=== PATIENT | female | born 1985 | race Caucasian/White ===

== ENCOUNTER → 2020-08-30 | Outpatient (CLI) | payer OTHER ==
[2020-08-30 21:56] LABS: HCT 42.6 % (37.2-46.3); HGB 13.8 g/dL (12.0-15.0); MCH 28.6 pg (27.0-32.0); MCHC 32.4 g/dL (32.0-37.0); MCV 88.2 fL (80.0-97.0); Platelet Count 345 X 10*3/uL (140-440); RBC 4.83 X 10*6/uL (4.10-5.20); RDW 12.5 % (11.5-14.5); WBC 8.34 X 10*3/uL (4.50-10.00)
[2020-08-31 03:58] LABS: African American GFR (CKD) 128.3 (60.0-200.0); Albumin 4.8 g/dL (3.80-4.90); Albumin/Globulin Ratio 2.4 (1.60-3.17); Anion Gap 11.3 mmol/L (4.00-12.00); BUN/Creat Ratio 21.43 Ratio (12.00-20.00); Calcium 9.7 mg/dL (8.7-10.3); Carbon Dioxide 25.7 mmol/L (21.6-31.8); Non-African American GFR(CKD) 110.7 (60.0-200.0); Potassium 4.3 mmol/L (3.5-5.5); Total Bilirubin 0.5 mg/dL (0.3-1.2); Total Protein 6.8 g/dL (6.2-8.2)
[2020-08-31 04:06] LABS: Thyroid Peroxidase Antibodies <28.0 U/mL (0.0-60.0)
[2020-08-31 04:07] LABS: Follicle Stimulating Hormone 11.7 mIU/mL; T4, Free (Free Thyroxine) 1.3 ng/dL (0.80-1.80)
[2020-08-31 04:30] LABS: Prolactin 29.1 ng/mL (2.8-29.2)
== END | disposition home or self-care (01) ==
LOC: LABWHC1 14:18
PROVIDERS: ATTEND Internal Medicine Endocrinology, Diabetes & Metabolism
DX: E04.2 Nontoxic multinodular goiter (principal); R53.83 Other fatigue
CPT/HCPCS: 36415; 80053; 82024; 82533; 83001; 84146; 84439; 84443; 84481; 85027; 86376

== ENCOUNTER → 2020-09-11 | Outpatient (CLI) | payer OTHER | END | disposition home or self-care (01) | LOC: LABWHC1 16:12 | PROVIDERS: ATTEND Internal Medicine Endocrinology, Diabetes & Metabolism | DX: E04.2 Nontoxic multinodular goiter (principal); R53.83 Other fatigue | CPT/HCPCS: 36415; 84443; 84445 ==

== ENCOUNTER → 2021-01-14 | Outpatient (CLI) | payer OTHER ==
[2021-01-14 18:58] LABS: T4, Free (Free Thyroxine) 1.2 ng/dL (0.80-1.80)
== END | disposition home or self-care (01) ==
LOC: LABWHC1 12:46
PROVIDERS: ATTEND Internal Medicine Endocrinology, Diabetes & Metabolism
DX: E04.2 Nontoxic multinodular goiter (principal)
CPT/HCPCS: 36415; 84439; 84443

== ENCOUNTER → 2021-07-30 | Outpatient (CLI) | payer OTHER ==
--- NOTE | 2021-07-30 16:11 | US ---
EXAMINATION TYPE: US thyroid st tissue head/neck DATE OF EXAM: 07/30/2021 COMPARISON: NONE CLINICAL HISTORY: E04.2 Nontoxic multinodular goiter. GLAND SIZE: Right Lobe: 5.2 x 2.2 x 1.5 cm Overall Parenchyma: homogenous Left Lobe: 4.3 x 1.4 x 1.5 cm Overall Parenchyma: homogeneous Isthmus Thickness: 0.2 cm NODULES RIGHT: # of nodules measured on right: 1. 2.0 X 1.1 x 1.6 cm, upper mid, cystic or almost completely cystic, anechoic nodule, which is wid er than tall, with lobulated or irregular margins, with echogenic foci, appears as a cluster of cysts . No prior. 2. 1.2 X 0.9 x 0.8 cm, mid, cystic or almost completely cystic, anechoic nodule, which is wider missael n tall, with smooth margins, with echogenic foci. No prior. 3. 0.7 X 0.5 x 0.7 cm, lower, solid or almost completely solid, isoechoic nodule, which is wider th an tall, with smooth margins, without echogenic foci. No prior. 4. 0.6 X 0.4 x 0.6 cm, upper , solid or almost completely solid, isoechoic nodule, which is wider t messina tall, with smooth margins, without echogenic foci. No prior. LEFT: # of nodules measured on left: 2 1. 0.8 X 0.4 x 0.7 cm, mid, solid or almost completely solid, hypoechoic nodule, which is wider missael n tall, with smooth margins, without echogenic foci. No prior. 2. 0.6 X 0.4 x 0.5 cm, mid, solid or almost completely solid, hypoechoic nodule, which is wider th an tall, with smooth margins, without echogenic foci. No prior. ISTHMUS: # of nodules measured in the isthmus: 0 Bilateral neck scanned, no evidence of lymphadenopathy. IMPRESSION: Highly suspicious dominant nodule right lobe of the gland, fine-needle aspiration of right lobe domin ant nodule suggested 2016 ACR TI-RADS LEVEL: TR 5 *Highest TI-RADS level nodule reported
== END | disposition home or self-care (01) ==
LOC: RADUSWWP 13:21
PROVIDERS: ATTEND Internal Medicine Endocrinology, Diabetes & Metabolism
DX: E04.2 Nontoxic multinodular goiter (principal)
CPT/HCPCS: 76536

== ENCOUNTER 2022-03-17 09:22 | Observation (INO) | payer OTHER ==
[2022-03-17 09:29] VITALS: RESP 18; TEMP 97.6
--- NOTE | 2022-03-17 09:47 | ED ---
General Adult HPI - General Chief complaint: Neuro Symptoms/Deficit Stated complaint: lt sided facial droop, weakness Time Seen by Provider: 03/17/22 09:34 Source: patient, RN notes reviewed Mode of arrival: ambulatory Limitations: no limitations - History of Present Illness Initial comments: Patient is a pleasant 36-year-old female presenting to the emergency department with concerns for neurological problems. Onset of symptoms was 3 days ago. Patient has difficulty moving the left side of her face. Patient states there is also some mild confusion and feels like her thoughts are slow. Patient states she is a little bit off balance and has fallen a couple times. Patient states that has been waxing and waning. No history of similar symptoms previously. No fever. - Related Data Home Medications Medication Instructions Recorded Confirmed No Known Home Medications 03/17/22 03/17/22 Allergies Allergy/AdvReac Type Severity Reaction Status Date / Time ketorolac [From Toradol] AdvReac Swelling Verified 03/17/22 11:26 Review of Systems ROS Statement: Those systems with pertinent positive or pertinent negative responses have been documented in the HPI. ROS Other: All systems not noted in ROS Statement are negative. Constitutional: Denies: fever Eyes: Denies: eye pain ENT: Denies: ear pain Respiratory: Denies: cough Cardiovascular: Denies: chest pain Endocrine: Denies: fatigue Gastrointestinal: Denies: abdominal pain Genitourinary: Denies: dysuria Musculoskeletal: Denies: back pain Skin: Denies: rash Neurological: Reports: as per HPI. Denies: headache Past Medical History Past Medical History: Thyroid Disorder History of Any Multi-Drug Resistant Organisms: None Reported Past Surgical History: No Surgical Hx Reported Past Psychological History: No Psychological Hx Reported Smoking Status: Never smoker Past Alcohol Use History: Rare Past Drug Use History: None Reported General Exam Limitations: no limitations General appearance: alert, in no apparent distress Head exam: Present: normocephalic Eye exam: Present: normal appearance, PERRL, EOMI ENT exam: Present: normal oropharynx Neck exam: Present: normal inspection Respiratory exam: Present: normal lung sounds bilaterally Cardiovascular Exam: Present: regular rate, normal rhythm GI/Abdominal exam: Present: soft. Absent: tenderness Extremities exam: Present: normal inspection Neurological exam: Present: alert, oriented X3, CN II-XII intact (Except for left facial droop. Patient also has weakness of the left forehead difficulty opening and closing left eye), normal gait Expanded Neurological exam: Present: protecting the airway Speech: Present: fluid speech Cranial nerves: EOM's Intact: Normal Cerebellar function: Finger to Nose: Normal Sensory exam: Upper Extremity Light Touch: Normal, Lower Extremity Light Touch: Normal Motor strength exam: RUE: 5, LUE: 5, RLE: 5, LLE: 5 Eye Response: (4) open spontaneously Motor Response: (6) obeys commands Verbal Response: (5) oriented Psychiatric exam: Present: normal affect, normal mood Skin exam: Present: normal color Course Vital Signs 03/17/22 09:23 Temperature 97.6 F Pulse Rate 82 Respiratory 18 Rate Blood Pressure 138/97 O2 Sat by Pulse 100 Oximetry EKG Findings - EKG Comments: EKG Findings:: Sinus rhythm rate 88. TN 132. QRS 97. QT 357. QTC 402. Normal axis. Normal QRS. No acute ST change. Medical Decision Making - Medical Decision Making Patient reevaluated and updated. 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 Therefore case was discussed with neurology, Dr. Rubio who would like patient kept for observation. Case also discussed with Dr. Mathis, who will admit covering hospital observation call. - Lab Data Result diagrams: 03/17/22 09:54 03/17/22 09:54 Lab Results 03/17/22 03/17/22 03/17/22 Range/Units 09:54 09:54 09:54 WBC 5.2 (3.8-10.6) k/uL RBC 5.03 (3.80-5.40) m/uL Hgb 14.2 (11.4-16.0) gm/dL Hct 43.8 (34.0-46.0) % MCV 87.1 (80.0-100.0) fL MCH 28.2 (25.0-35.0) pg MCHC 32.4 (31.0-37.0) g/dL RDW 12.3 (11.5-15.5) % Plt Count 304 (150-450) k/uL MPV 7.7 Neutrophils % 60 % Lymphocytes % 25 % Monocytes % 8 % Eosinophils % 4 % Basophils % 1 % Neutrophils # 3.1 (1.3-7.7) k/uL Lymphocytes # 1.3 (1.0-4.8) k/uL Monocytes # 0.4 (0-1.0) k/uL Eosinophils # 0.2 (0-0.7) k/uL Basophils # 0.0 (0-0.2) k/uL PT 10.0 (9.0-12.0) sec INR 0.9 (<1.2) APTT 24.4 (22.0-30.0) sec Sodium 140 (137-145) mmol/L Potassium 4.3 (3.5-5.1) mmol/L Chloride 100 (98-107) mmol/L Carbon Dioxide 29 (22-30) mmol/L Anion Gap 11 mmol/L BUN 11 (7-17) mg/dL Creatinine 0.59 (0.52-1.04) mg/dL Est GFR (CKD-EPI)AfAm >90 (>60 ml/min/1.73 sqM) Est GFR (CKD-EPI)NonAf >90 (>60 ml/min/1.73 sqM) Glucose 96 (74-99) mg/dL Calcium 9.1 (8.4-10.2) mg/dL Total Bilirubin 0.9 (0.2-1.3) mg/dL AST 19 (14-36) U/L ALT 18 (4-34) U/L Alkaline Phosphatase 50 (38-126) U/L Troponin I (0.000-0.034) ng/mL Total Protein 7.4 (6.3-8.2) g/dL Albumin 4.9 (3.5-5.0) g/dL 03/17/22 Range/Units 09:54 WBC (3.8-10.6) k/uL RBC (3.80-5.40) m/uL Hgb (11.4-16.0) gm/dL Hct (34.0-46.0) % MCV (80.0-100.0) fL MCH (25.0-35.0) pg MCHC (31.0-37.0) g/dL RDW (11.5-15.5) % Plt Count (150-450) k/uL MPV Neutrophils % % Lymphocytes % % Monocytes % % Eosinophils % % Basophils % % Neutrophils # (1.3-7.7) k/uL Lymphocytes # (1.0-4.8) k/uL Monocytes # (0-1.0) k/uL Eosinophils # (0-0.7) k/uL Basophils # (0-0.2) k/uL PT (9.0-12.0) sec INR (<1.2) APTT (22.0-30.0) sec Sodium (137-145) mmol/L Potassium (3.5-5.1) mmol/L Chloride (98-107) mmol/L Carbon Dioxide (22-30) mmol/L Anion Gap mmol/L BUN (7-17) mg/dL Creatinine (0.52-1.04) mg/dL Est GFR (CKD-EPI)AfAm (>60 ml/min/1.73 sqM) Est GFR (CKD-EPI)NonAf (>60 ml/min/1.73 sqM) Glucose (74-99) mg/dL Calcium (8.4-10.2) mg/dL Total Bilirubin (0.2-1.3) mg/dL AST (14-36) U/L ALT (4-34) U/L Alkaline Phosphatase (38-126) U/L Troponin I <0.012 (0.000-0.034) ng/mL Total Protein (6.3-8.2) g/dL Albumin (3.5-5.0) g/dL - Radiology Data Radiology results: report reviewed (Computed tomography scan of the brain reveals no acute process. CT angios shows no significant abnormality.), image reviewed (Two-view chest x-ray reveals no acute) Disposition Clinical Impression: Facial weakness Disposition: ADMITTED IP TO THIS HOSP Is patient prescribed a controlled substance at d/c from ED?: No Referrals: None,Stated [Primary Care Provider] - 1-2 days Time of Disposition: 11:41
[2022-03-17 10:00] LABS: Basophils % (A) 1 %; Eosinophils # (A) 0.2 k/uL (0-0.7); Eosinophils % (A) 4 %; HCT 43.8 % (34.0-46.0); HGB 14.2 gm/dL (11.4-16.0); Lymphocytes # (A) 1.3 k/uL (1.0-4.8); Lymphocytes % (A) 25 %; MCH 28.2 pg (25.0-35.0); MCHC 32.4 g/dL (31.0-37.0); MCV 87.1 fL (80.0-100.0); Mean Platelet Volume 7.7; Monocytes # (A) 0.4 k/uL (0-1.0); Monocytes % (A) 8 %; Neutrophils # (A) 3.1 k/uL (1.3-7.7); Neutrophils % (A) 60 %; Platelet Count 304 k/uL (150-450); RBC 5.03 m/uL (3.80-5.40); RDW 12.3 % (11.5-15.5); WBC 5.2 k/uL (3.8-10.6)
[2022-03-17 10:10] LABS: INR 0.9 (<1.2); Partial Thromboplastin Time 24.4 sec (22.0-30.0)
[2022-03-17 10:12] LABS: ALT 18 U/L (4-34); AST 19 U/L (14-36); African American GFR (CKD) >90 (>60 ml/min/1.73 sqM); Albumin 4.9 g/dL (3.5-5.0); Alkaline Phosphatase 50 U/L (38-126); Anion Gap 11 mmol/L; Blood Urea Nitrogen 11 mg/dL (7-17); Calcium 9.1 mg/dL (8.4-10.2); Carbon Dioxide 29 mmol/L (22-30); Chloride 100 mmol/L (98-107); Glucose 96 mg/dL (74-99); Non-African American GFR(CKD) >90 (>60 ml/min/1.73 sqM); Potassium 4.3 mmol/L (3.5-5.1); Sodium 140 mmol/L (137-145); Total Bilirubin 0.9 mg/dL (0.2-1.3); Total Protein 7.4 g/dL (6.3-8.2)
--- NOTE | 2022-03-17 10:38 | XR ---
EXAMINATION TYPE: XR chest 2V DATE OF EXAM: 03/17/2022 COMPARISON: None HISTORY: 36-year-old female confusion, altered mental status, weakness and dizziness TECHNIQUE: AP and lateral views FINDINGS: Heart normal size. Aorta and pulmonary vasculature within normal limits. No consolidation or pleural effusion. IMPRESSION: No acute cardiopulmonary process.
--- NOTE | 2022-03-17 10:38 | CT ---
EXAMINATION TYPE: CT brain wo con DATE OF EXAM: 03/17/2022 COMPARISON: None. HISTORY: stroke CT DLP: 1067.6 mGycm. Automated Exposure Control for Dose Reduction was Utilized. TECHNIQUE: CT scan of the head is performed without contrast. FINDINGS: There is no acute intracranial hemorrhage, mass effect, or midline shift identified. The ventricles and sulci are within normal limits in size. Villegas-white matter differentiation is maintain ed. The globes are intact and the visualized sinuses are clear. IMPRESSION: Unremarkable study.
--- NOTE | 2022-03-17 11:04 | CT ---
EXAMINATION TYPE: CT angio head neck DATE OF EXAM: 03/17/2022 HISTORY: stroke acute onset neuro deficit. COMPARISON: None. CT DLP: 388.7 mGycm. Automated Exposure Control for Dose Reduction was Utilized. TECHNIQUE: CTA scan of the head and neck is performed with IV Contrast, patient injected with 65 mL of Isovue 370, axial images are obtained, coronal and sagittal reformatted images are reviewed. 3D re constructed images are created on an independent workstation and reviewed. FINDINGS: Carotid/Vascular Structures: Normal three-vessel origin from the arch without plaque or stenosis. No significant plaque or stenosis in the common or internal carotid arteries including at the level of t he carotid bulbs. Patent external carotid arteries bilaterally without significant plaque or stenosis . Codominant vertebral arteries patent to the basilar junction. No significant aneurysm or stenosis in the posterior circulation. Patent bilateral posterior communicating arteries are seen. Images of the anterior circulation show patent anterior communicating artery. There is no significant stenosis or a neurysm in the anterior circulation identified. Other: There are low dense greater than 1.0 cm right thyroid nodules. This correlates with thyroid ul trasound July 30, 2021. IMPRESSION: No significant abnormality is seen. NASCET criteria was used in interpretation of this exam?
[2022-03-17] MEDS ORDERED: ONDANSETRON 4 MG/2 ML VIAL IVP STA (11:42)
[2022-03-17] MEDS ORDERED: ACETAMINOPHEN TAB 325 MG TAB PO PRN (11:43)
[2022-03-17] MEDS ORDERED: ONDANSETRON 4 MG/2 ML VIAL IVP PRN (11:43)
[2022-03-17] MEDS ORDERED: NALOXONE 0.4 MG/ML 1 ML VIAL IV PRN (11:43)
[2022-03-17] MEDS ORDERED: valACYclovir HCL 1,000 MG TABLET PO SCH ×2 (11:45→18:00)
[2022-03-17] MEDS ORDERED: predniSONE 50 MG TAB PO SCH (11:45)
[2022-03-17] MEDS ORDERED: SODIUM CHLORIDE 0.9% 1,000 ML IV SCH (11:45)
--- NOTE | 2022-03-17 12:43 | P.CNNES ---
History of Present Illness Consult date: 03/17/22 Requesting physician: Fabrice Wing Reason for Consult: facial weakness with confusion and off balance History of Present Illness: This is a 36-year-old woman presented emergency department because of the having left facial weakness, little bit off balance for the past 3 days prior to presenting to our facility. She stated that she noticed that her left sided muscles are not working as good as the right side is been going on for 3 days. She is having a hard time closing her eyes and keep her eyes closed on the left eye that. She feels her balance is off somewhat. She doesn't feel herself but does not feel confused at the same time. Denies any numbness, any fevers, any urinary or bowel incontinence at. Feels like she is having a headache over the base of the skull and denies any nausea vomiting. Denies any photophobia or phonophobia. Denies any radiation of the headache. She feels the headache is 5/10.She denies of any previous similar symptoms. Denies any sick contacts. Denies any history of multiple sclerosis or stroke in the past. She does have an and has a stroke in her 50s years old. She denies being on aspirin or antiplatelet or statin use. Some of the workup during this hospital visit consisted of: Patient is afebrile blood pressure is 130/97. CBC with differential and chemistry panel is unremarkable CT of the head is reported as unremarkable study. CT angiography of the head and neck is reported as no abnormality is seen. Review of Systems Review of system: The 12 point system was reviewed and apparent positive and negative per HPI. Past Medical History Past Medical History: Thyroid Disorder History of Any Multi-Drug Resistant Organisms: None Reported Past Surgical History: No Surgical Hx Reported Past Psychological History: No Psychological Hx Reported Smoking Status: Never smoker Past Alcohol Use History: Rare Past Drug Use History: None Reported Medications and Allergies Home Medications Medication Instructions Recorded Confirmed Type No Known Home Medications 03/17/22 03/17/22 History Allergies Allergy/AdvReac Type Severity Reaction Status Date / Time ketorolac [From Toradol] AdvReac Swelling Verified 03/17/22 11:26 Physical Examination - Vital Signs Vital Signs: Vital Signs Temp Pulse Resp BP Pulse Ox 03/17/22 11:39 79 18 122/75 100 03/17/22 09:23 97.6 F 82 18 138/97 100 Intake and Output 03/16/22 03/17/22 03/17/22 22:59 06:59 14:59 Other: Weight 60.781 kg GENERAL: The patient is lying in bed and is not in acute distress. CHEST: The heart rate is regular rate rhythm. No murmurs to auscultation. LUNG: Clear to auscultation bilaterally no wheezing noted throughout. Not labored breathing. ABDOMEN/GI: Bowel sounds present in all 4 quadrants. No tenderness to palpation throughout. NEUROLOGICAL: Higher mental function: The patient is awake, alert, oriented to self, place and time. Patient is following commands. No aphasia and no neglect. Cranial nerves: The pupils are round, equal and reactive to light and accommodation. Visual vidal are full to confrontation throughout. Extraocular movement is mild to subtle nystagmus looking to the left and appears horizontal on the left eye and subtle partial palsy medial rectus palsy over the right eye (upon looking to left). Facial sensation is normal to touch throughout. The facial strength is has peripheral weakness (upper and lower) weakness over the left side and had difficulty closing her eye. Hearing is normal bilaterally to hand rub. Tongue is midline and moved [id number] without any difficulty. No dysarthria is noted. Shoulder shrug is normal bilaterally. Motor: Gait is normal. The strength is 5 over 5 throughout. Normal tone and bulk. Cerebellum: Normal finger to nose heel to montero bilaterally. Sensation: Sensation is normal to touch throughout. Reflexes (right/left): 2+ throughout. Plantars are downgoing bilaterally. Results - Laboratory Findings CBC and BMP: 03/17/22 09:54 03/17/22 09:54 Assessment and Plan Assessment: Acute left facial weakness and appears peripheral (upper and lower), feeling off balance. On examination peripheral facial weakness and subtle right eye nystagmus looking to left with subtle partial right medial palsy: Rule out any demylinating disease. Unlikey stroke. Cannot rule out isolated Castañeda's Palsy. Plan: I ordered MRI of the brain and cervical spine to rule out any demyelinating disease or stroke (stroke is unlikely). Ordered vitamin B12, folate, TSH. ED felt this is possibly a Castañeda's palsy and they started the patient on valacyclovir thousand milligrams 1 tablet 3 times a day as well as prednisone 50 mg at daily. Recommend eye patch to wear intermittently but wear it throughout the nite to avoid corneal ulcers and recommend normal saline eye ointment 1-2 drops QID PRN. If patient does have stroke will get rest of stroke work-up. Every 4 hours neuro checks Consulted PT and OT for gait training The plan is discussed with patient. Thank you for the consultation. Joel Be M.D. Neuro-hospitalist Time with Patient: Greater than 30
[2022-03-17] MEDS ORDERED: HEPARIN SODIUM,PORCINE/PF 5,000 UNIT/0.5 ML SYRINGE SQ SCH (17:00)
--- NOTE | 2022-03-17 17:01 | P.HPIM ---
History of Present Illness H&P Date: 03/17/22 Chief Complaint: Facial droop This is a 36-year-old female who presents to [facility] with sudden onset of left facial droop and trouble walking. Onset of symptoms develop 3 days ago. Patient states that she kept falling and she couldn't facial expressions on the left side of her face. Patient also notes that she cannot express a full thought and has trouble finding the words. He takes her longer than usual. Patient denies chest pain, shortness breath, nausea, vomiting, fever, chills, headache, dizziness, or neuropathy. Patient denies significant medical history. Patient is not on control and she denies smoking. Review of Systems A 14 point review of systems was assessed patient was only positive for those assessed in HPI Past Medical History Past Medical History: Thyroid Disorder History of Any Multi-Drug Resistant Organisms: None Reported Past Surgical History: No Surgical Hx Reported Past Psychological History: No Psychological Hx Reported Smoking Status: Never smoker Past Alcohol Use History: Rare Past Drug Use History: None Reported Medications and Allergies Home Medications Medication Instructions Recorded Confirmed Type No Known Home Medications 03/17/22 03/17/22 History Allergies Allergy/AdvReac Type Severity Reaction Status Date / Time ketorolac [From Toradol] AdvReac Swelling Verified 03/17/22 11:26 Physical Exam Osteopathic Statement: *. No significant issues noted on an osteopathic structural exam other than those noted in the History and Physical/Consult. Vitals: Vital Signs Temp Pulse Resp BP Pulse Ox 03/17/22 13:53 82 18 117/78 97 03/17/22 11:39 79 18 122/75 100 03/17/22 09:23 97.6 F 82 18 138/97 100 Intake and Output 03/17/22 03/17/22 03/17/22 06:59 14:59 22:59 Other: Weight 60.781 kg General: [non toxic], [no distress], [appears at stated age] Derm: [warm], [dry] Head: [atraumatic], [normocephalic], [symmetric] Eyes: [EOMI], [no lid lag], [anicteric sclera] Mouth: [no lip lesion], [mucus membranes moist] Cardiovascular: [S1S2 reg], [no murmur], [positive posterior tibial pulse bilateral], Lungs: [CTA bilateral], [no rhonchi, no rales] , [no accessory muscle use] Abdominal: [soft], [ nontender to palpation], [no guarding], [no appreciable organomegaly] Ext: [no gross muscle atrophy], [no edema], [no contractures] Neuro: left facial droop Psych: [Alert], [oriented], irritable Results CBC & Chem 7: 03/17/22 09:54 03/17/22 09:54 Thrombosis Risk Factor Assmnt - DVT/VTE Prophylaxis DVT/VTE Prophylaxis: Pharmacologic Prophylaxis ordered Assessment and Plan Assessment: Assessment: 1. 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 She did not want to stay overnight. Patient threatened to leave AGAINST MEDICAL ADVICE. Patient left AGAINST MEDICAL ADVICE Greater than 38 minutes spent coordinating care documenting and counseling patient Time with Patient: Greater than 30
[2022-03-17 17:02] VITALS: BP 120/81; PULSE 80
--- NOTE | 2022-03-17 17:02 | P.DS ---
Providers Date of admission: 03/17/22 11:46 Expected date of discharge: 03/17/22 Attending physician: Jina Mathis MD Consults: 03/17/22 11:43 Consult Physician Routine Consulting Provider: Joel Be Consult Reason/Comments: facial weakness w confusion and off balance Do you want consulting provider notified?: Already Contacted Primary care physician: Stated None Hospital Course: Patient was admitted for left facial droop and gait imbalance. Patient required further workup with MRI and echo. However patient did not want to stay in the hospital overnight. Patient left AGAINST MEDICAL ADVICE. Disposition: Patient left AGAINST MEDICAL ADVICE Patient Condition at Discharge: Poor Plan - Discharge Summary New Discharge Prescriptions: No Action No Known Home Medications Discharge Medication List No Known Home Medications 03/17/22 [History] Follow up Appointment(s)/Referral(s): None,Stated [Primary Care Provider] - 1-2 days
[2022-03-17] MEDS ORDERED: ARTIFICIAL TEARS OINTMENT 3.5 GM TUBE LEFT EYE SCH (18:00)
[2022-03-17] MEDS ORDERED: FAMOTIDINE 20 MG TAB PO SCH (21:00)
== END 2022-03-17 16:58 | disposition left against medical advice (07) ==
LOC: EC 09:22 → 6NMEDSUR 11:46
PROVIDERS: ADMIT Internal Medicine; ATTEND Internal Medicine
DX: R29.810 Facial weakness (principal); R26.89 Other abnormalities of gait and mobility; R41.0 Disorientation, unspecified; H55.00 Unspecified nystagmus; Z86.73 Personal history of transient ischemic attack (TIA), and cerebral infarction without residual deficits; Z88.6 Allergy status to analgesic agent; Z53.29 Procedure and treatment not carried out because of patient's decision for other reasons
CPT/HCPCS: 96374; 99285; 36415; 93005; 80053; 84443; 82607; 82746; 84484; 85025; 85610; 85730; 71046; 70496; 70450; 70498; G0378; J2405; J7512; Q9967

== ENCOUNTER 2022-04-05 10:28 | Observation (INO) | payer OTHER ==
[2022-04-05] MEDS ORDERED: HYDROmorphone 1 MG/ML 1 ML SYRINGE IVP STA (10:54)
--- NOTE | 2022-04-05 11:00 | ED ---
General Adult HPI - General Chief complaint: Weakness Stated complaint: Weakness Time Seen by Provider: 04/05/22 10:38 Source: patient, RN notes reviewed Mode of arrival: wheelchair Limitations: no limitations - History of Present Illness Initial comments: Patient is a pleasant 36-year-old female presenting to the emergency department with concerns for weakness. Onset of symptoms was a few weeks ago. Patient did have left-sided facial droop and was admitted to the hospital. Symptoms have worsened since discharge. Patient does have discomfort of her left eye and some double vision with her left eye which is new. Patient is having general diffi culty with walking and feeling generally weak. No extremity weakness on one side more than the other. Patient does have left facial weakness however this is improving. Patient does have chronic left neck pain. Patient does have discomfort behind her left eye. - Related Data Home Medications Medication Instructions Recorded Confirmed No Known Home Medications 03/17/22 03/17/22 Allergies Allergy/AdvReac Type Severity Reaction Status Date / Time ketorolac [From Toradol] AdvReac Swelling Verified 04/05/22 10:31 Review of Systems ROS Statement: Those systems with pertinent positive or pertinent negative responses have been documented in the HPI. ROS Other: All systems not noted in ROS Statement are negative. Constitutional: Denies: fever Eyes: Reports: as per HPI, eye pain, vision change ENT: Denies: ear pain Respiratory: Denies: cough Cardiovascular: Denies: chest pain Endocrine: Reports: fatigue Gastrointestinal: Denies: abdominal pain Genitourinary: Denies: dysuria Musculoskeletal: Denies: back pain Skin: Denies: rash Neurological: Reports: as per HPI Past Medical History Past Medical History: Thyroid Disorder History of Any Multi-Drug Resistant Organisms: None Reported Past Surgical History: No Surgical Hx Reported Past Psychological History: No Psychological Hx Reported Smoking Status: Never smoker Past Alcohol Use History: Rare Past Drug Use History: None Reported General Exam Limitations: no limitations General appearance: alert, in no apparent distress Head exam: Present: normocephalic Eye exam: Present: nystagmus (Right eye lateral horizontal), other (Mild proptosis left eye). Absent: EOMI (Unable to move the left eyelid lateral past midline) Expanded Pupils: Regular, Round: Bilateral, Reactive: Bilateral Sclera/Conjunctival: Normal Inspection: Bilateral ENT exam: Present: normal oropharynx, TM's normal bilaterally Neck exam: Present: tenderness (Moderate tenderness left lateral cervical which patient states is chronic) Respiratory exam: Present: normal lung sounds bilaterally Cardiovascular Exam: Present: regular rate, normal rhythm GI/Abdominal exam: Present: soft. Absent: tenderness Extremities exam: Present: normal inspection, full ROM. Absent: tenderness Neurological exam: Present: alert, other (Right eye with lateral horizontal nystagmus. Left thigh unable to move laterally past midline. Mild proptosis.) Psychiatric exam: Present: normal affect, normal mood Skin exam: Present: normal color Course Vital Signs 04/05/22 10:31 Temperature 97.7 F Pulse Rate 89 Respiratory 16 Rate Blood Pressure 140/90 O2 Sat by Pulse 100 Oximetry - Reevaluation(s) Reevaluation #1: 04/05/22 11:00 Case was discussed with Dr. Banks, who will consult. 04/05/22 11:28 tonopen Pressure on the right is 13, on the left is 12 EKG Findings - EKG Comments: EKG Findings:: Sinus rhythm rate 75. ND 128. QRS 98. QT 399. QTC 420. Normal axis. Normal QRS. No acute ST change. Medical Decision Making - Medical Decision Making Patient and family updated on results and plan. Case was also discussed with Dr. Tellez who did evaluate patient. Case discussed with her neurosurgeon, who will admit covering hospital call. - Lab Data Result diagrams: 04/05/22 11:07 04/05/22 11:07 Lab Results 04/05/22 04/05/22 04/05/22 Range/Units 11:07 11:07 11:07 WBC 7.1 (3.8-10.6) k/uL RBC 4.62 (3.80-5.40) m/uL Hgb 13.4 (11.4-16.0) gm/dL Hct 39.2 (34.0-46.0) % MCV 85.0 (80.0-100.0) fL MCH 29.1 (25.0-35.0) pg MCHC 34.2 (31.0-37.0) g/dL RDW 12.0 (11.5-15.5) % Plt Count 261 (150-450) k/uL MPV 8.2 Neutrophils % 67 % Lymphocytes % 20 % Monocytes % 8 % Eosinophils % 2 % Basophils % 1 % Neutrophils # 4.8 (1.3-7.7) k/uL Lymphocytes # 1.4 (1.0-4.8) k/uL Monocytes # 0.6 (0-1.0) k/uL Eosinophils # 0.2 (0-0.7) k/uL Basophils # 0.0 (0-0.2) k/uL ESR 8 (0-20) mm/hr PT 10.2 (9.0-12.0) sec INR 0.9 (<1.2) APTT 24.7 (22.0-30.0) sec Sodium 138 (137-145) mmol/L Potassium 4.1 (3.5-5.1) mmol/L Chloride 104 (98-107) mmol/L Carbon Dioxide 24 (22-30) mmol/L Anion Gap 10 mmol/L BUN 9 (7-17) mg/dL Creatinine 0.44 L (0.52-1.04) mg/dL Est GFR (CKD-EPI)AfAm >90 (>60 ml/min/1.73 sqM) Est GFR (CKD-EPI)NonAf >90 (>60 ml/min/1.73 sqM) Glucose 97 (74-99) mg/dL Calcium 8.5 (8.4-10.2) mg/dL Total Bilirubin 0.8 (0.2-1.3) mg/dL AST 20 (14-36) U/L ALT 17 (4-34) U/L Alkaline Phosphatase 51 (38-126) U/L Total Protein 6.5 (6.3-8.2) g/dL Albumin 4.3 (3.5-5.0) g/dL - Radiology Data Radiology results: report reviewed (CT brain shows no acute process.), image reviewed (Chest x-ray shows no acute process) Disposition Clinical Impression: Sixth nerve palsy, Nystagmus, Balance problem Disposition: ADMITTED IP TO THIS [facility] Condition: Serious Is patient prescribed a controlled substance at d/c from ED?: No Referrals: None,Stated [Primary Care Provider] - 1-2 days Time of Disposition: 13:12
[2022-04-05 11:17] LABS: Basophils % (A) 1 %; Eosinophils # (A) 0.2 k/uL (0-0.7); Eosinophils % (A) 2 %; HCT 39.2 % (34.0-46.0); HGB 13.4 gm/dL (11.4-16.0); Lymphocytes # (A) 1.4 k/uL (1.0-4.8); Lymphocytes % (A) 20 %; MCH 29.1 pg (25.0-35.0); MCHC 34.2 g/dL (31.0-37.0); Mean Platelet Volume 8.2; Monocytes # (A) 0.6 k/uL (0-1.0); Monocytes % (A) 8 %; Neutrophils # (A) 4.8 k/uL (1.3-7.7); Neutrophils % (A) 67 %; Platelet Count 261 k/uL (150-450); RBC 4.62 m/uL (3.80-5.40); WBC 7.1 k/uL (3.8-10.6)
[2022-04-05 11:26] LABS: INR 0.9 (<1.2); Partial Thromboplastin Time 24.7 sec (22.0-30.0); Prothrombin Time 10.2 sec (9.0-12.0)
[2022-04-05] MEDS ORDERED: PHENYLEPHRINE 2.5% OPHTH DRP 2ML LEFT EYE STA (11:26)
[2022-04-05 11:27] LABS: ALT 17 U/L (4-34); AST 20 U/L (14-36); African American GFR (CKD) >90 (>60 ml/min/1.73 sqM); Albumin 4.3 g/dL (3.5-5.0); Alkaline Phosphatase 51 U/L (38-126); Anion Gap 10 mmol/L; Blood Urea Nitrogen 9 mg/dL (7-17); Calcium 8.5 mg/dL (8.4-10.2); Carbon Dioxide 24 mmol/L (22-30); Chloride 104 mmol/L (98-107); Glucose 97 mg/dL (74-99); Non-African American GFR(CKD) >90 (>60 ml/min/1.73 sqM); Potassium 4.1 mmol/L (3.5-5.1); Sodium 138 mmol/L (137-145); Total Bilirubin 0.8 mg/dL (0.2-1.3); Total Protein 6.5 g/dL (6.3-8.2)
[2022-04-05] MEDS ORDERED: TROPICAMIDE 1% OPHTH DROPS 2 ML BTL LEFT EYE STA (11:27)
[2022-04-05] MEDS ORDERED: ONDANSETRON 4 MG/2 ML VIAL IVP STA (11:28)
--- NOTE | 2022-04-05 11:34 | P.CON ---
Consult Note - . Consult date: 04/05/22 Assessment/Plan:: This is a 36 y/o female who's having ongoing symptoms of discomfort on the left side. She is now experiencing diplopia for the last 2 weeks or so. It seems to be becoming more problematic and is experiencing discomfort of 8/10 which inc reases to 10/10 on left gaze. The vision is poor on the left has become steadily worse, is no better than shapes. Her last eye exam was about 2 years ago, and frequently get glasses on line. Her last dilated eye exam was about 5 years or more ago. There is no prior surgery or known surgery. Feels discomfort in the left ear canal, but no changes in hearing, not muffled or having hyperacusis. Ext: left eye crossing midline and mild proptosis noted on left with moderate tenderness to palpation Va: cC 20/20 OD, CF 3' OS IOP: 14 mm Hg OD, 13 mm Hg OS EOM: normal OD, OS crossing midline, and poor movement to left, no problems noted sup, inf, nasal directions CF: normal OU Pupils: normal OD, mod RAPD noted OS Cornea: clear Iris: normal AC: clear Lens: clear Vit: clear Optic nerve: S/F/P, C:D 0.35 OD, 0.40 OS Mac: quiet, normal FLR Vessels: normal, 0.67 Periph: normal OU CT; non contrast, unremarkable A: 1) Amaurosis OD, normal VF, poor acuity with mod APD, no obvious ophthalmic signs. 2) CN palsy left 3) presumed proptosis, OS, some orbital tenderness P: 1) Recommend return to [facility] when discharged. Recommend GCA workup, very early age, but at least consider if no etiology, I will order CBC, ESR & C-RP. Expect the CV palsy to resolve in a few weeks. Can provide supportive care while recovering. Let me know if I can be of additional assista nce.
[2022-04-05 12:01] LABS: Erythrocyte Sedimentation Rate 8 mm/hr (0-20)
--- NOTE | 2022-04-05 12:23 | CT ---
EXAMINATION TYPE: CT brain wo con DATE OF EXAM: 04/05/2022 COMPARISON: CT brain and CTA head neck 03/17/2022 HISTORY: Neuro deficits, AMS CT DLP: 1173.4 mGycm. Automated Exposure Control for Dose Reduction was Utilized. TECHNIQUE: CT scan of the head is performed without contrast. FINDINGS: There is no acute intracranial hemorrhage, mass effect, or midline shift identified. The ventricles and sulci are within normal limits in size. The globes are intact and the visualized sin uses are clear. IMPRESSION: No acute intracranial hemorrhage, mass effect, or midline shift is seen.
--- NOTE | 2022-04-05 12:25 | XR ---
EXAMINATION TYPE: XR chest 2V DATE OF EXAM: 04/05/2022 COMPARISON: Chest x-ray 03/17/2022 HISTORY: Altered mental status TECHNIQUE: Frontal and lateral views of the chest are obtained. FINDINGS: There is no focal air space opacity, pleural effusion, or pneumothorax seen. The cardiac silhouette size is within normal limits. The osseous structures are intact. IMPRESSION: No acute cardiopulmonary process.
[2022-04-05] MEDS ORDERED: NALOXONE 0.4 MG/ML 1 ML VIAL IV PRN (13:13)
[2022-04-05] MEDS ORDERED: HYDROmorphone 0.5 MG/0.5 ML SYRINGE IVP PRN (13:13)
[2022-04-05] MEDS ORDERED: ONDANSETRON 4 MG/2 ML VIAL IVP PRN (13:13)
[2022-04-05] MEDS ORDERED: HYDROmorphone 1 MG/ML 1 ML SYRINGE IVP PRN (13:13)
[2022-04-05] MEDS ORDERED: SODIUM CHLORIDE 0.9% 1,000 ML IV SCH (13:15)
--- NOTE | 2022-04-05 14:25 | MR ---
EXAMINATION TYPE: MR brain/orbits wo/w con DATE OF EXAM: 04/05/2022 COMPARISON: CT brain same date HISTORY: Left sixth nerve palsy, right eye nystagmus. TECHNIQUE: Multiplanar, multisequence images of the brain and brainstem is performed without and with IV contras t, utilizing 6.5 mL intravenous Gadavist . FINDINGS: Diffusion weighted images demonstrate no evidence of a recent infarct or other diffusion ab normality. There is no extra-axial fluid collection. Periventricular, pericallosal white matter hype rintensity axial image #28, 21 measures approximately 5 mm in greatest dimension. The ventricular sys tem and cisternal spaces are normal in size and appearance. The brain volume is age appropriate. Midline structures demonstrate normal morphology. The craniocervical junction appears within normal limits. Post contrast images demonstrate no abnormal enhancement. Tortuous left vertebral artery kenyetta ws contact with medulla, findings suggest some local mass effect. The dural venous sinuses appear pat ent. The visualized sinuses are remarkable for inflammatory change in the ethmoid air cells and the g lobes are intact. The orbits show symmetric appearance. No intraorbital mass. Strabismus change is noted. No aneurysm i dentified within the intracavernous portion of the internal carotid arteries. No evident cavernous si nus thrombosis. Basilar artery is somewhat tortuous. 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 Nonspecific white matter demyelinat ion. Additional findings above.
[2022-04-05 14:41] LABS: Basophils % (A) 0 %; Eosinophils # (A) 0.1 k/uL (0-0.7); Eosinophils % (A) 1 %; HCT 37.8 % (34.0-46.0); HGB 12.9 gm/dL (11.4-16.0); Lymphocytes # (A) 0.7 k/uL (1.0-4.8); Lymphocytes % (A) 10 %; MCH 28.9 pg (25.0-35.0); MCHC 34.2 g/dL (31.0-37.0); MCV 84.5 fL (80.0-100.0); Mean Platelet Volume 8.4; Monocytes # (A) 0.4 k/uL (0-1.0); Monocytes % (A) 5 %; Neutrophils # (A) 6.3 k/uL (1.3-7.7); Neutrophils % (A) 83 %; Platelet Count 219 k/uL (150-450); RBC 4.47 m/uL (3.80-5.40); RDW 12.3 % (11.5-15.5); WBC 7.6 k/uL (3.8-10.6)
[2022-04-05] MEDS: ACETAMINOPHEN TAB 325 MG TAB PO PRN (19:25)
--- NOTE | 2022-04-05 21:16 | P.HPIM ---
History of Present Illness H&P Date: 04/05/22 Chief Complaint: left facial weakness patient is a 36-year-old femalewithout significant past medical history presents to ER with complaints of left-sided facial pain, weakness and and unable to close her eye completely. Patient was recently admitted to the hospital for pos sible left facial palsy. Patient was discharged home with valacyclovir and prednisone. Patient states that she has been having left-sided facial pain and also developed double vision. She was also noted to have left eye discomfort and was noted to be having left-sided neck palsy while in the ER. Patient is also being generalized weakness and presented to ER. Patient does have history of chronic neck pain. Left facial weakness however is improving. No complaints of fever or chills. No cough or sputum production. No chest pain or shortness breath. Patient was seen by ophthalmology in the ER. CT head showed no acute intracranial hemorrhage, mass effect or midline shift is seen. Chest x-ray showed no acute cardiopulmonary process. EKG showed normal sinus rhythm. MRI of the orbits showed consider vertebral artery compression of the middle lobe. Nonspecific white matter demyelination. Review of Systems Constitutional: Patient denies any fever or chills . No generalized weakness or weight loss. Abdomen: Patient denied nausea vomiting and diarrhea and abdominal pain. Cardiovascular: Patient denies any chest pain or short of breath no palpitations. Respiratory: patient denied any cough is from production. No shortness of breath Neurologic: Patient denied any numbness or tingling headache. Patient does have left eye discomfort and left facial weakness and pain. Musculoskeletal: Patient denies any complaints of joint swelling or deformity. Skin: Negative Psychiatric: Negative Endocrine: No heat or cold intolerance. No recent weight gain. Genitourinary: No dysuria or hematuria. All other 14 point ROS negative except the above Past Medical History Past Medical History: Thyroid Disorder History of Any Multi-Drug Resistant Organisms: None Reported Past Surgical History: No Surgical Hx Reported Past Anesthesia/Blood Transfusion Reactions: No Reported Reaction Past Psychological History: No Psychological Hx Reported Smoking Status: Never smoker Past Alcohol Use History: Rare Past Drug Use History: None Reported Medications and Allergies Home Medications Medication Instructions Recorded Confirmed Type No Known Home Medications 03/17/22 04/05/22 History Allergies Allergy/AdvReac Type Severity Reaction Status Date / Time ketorolac [From Toradol] AdvReac Swelling Verified 04/05/22 14:03 Physical Exam Vitals: Vital Signs Temp Pulse Pulse Resp BP BP Pulse Ox 04/05/22 20:10 68 04/05/22 19:02 97.8 F 82 17 146/87 99 04/05/22 18:26 97.8 F 92 18 124/69 98 04/05/22 15:00 81 16 139/80 98 04/05/22 10:31 97.7 F 89 16 140/90 100 Intake and Output 04/05/22 04/05/22 04/05/22 06:59 14:59 22:59 Other: Weight 63.503 kg 63.503 kg PHYSICAL EXAMINATION: Patient is lying in the bed comfortably, no acute distress, awake alert and oriented.. HEENT: Normocephalic. Neck is supple. Pupils reactive. Nostrils clear. Oral cavity is moist. Neck reveals no JVD, carotid bruits, or thyromegaly. CHEST EXAMINATION: Trachea is central. Symmetrical expansion. Lung vidal clear to auscultation and percussion. CARDIAC: Normal S1, S2 with no gallops. No murmurs ABDOMEN: Soft. Bowel sounds normal. No organomegaly. No abdominal bruits. Extremities: reveal no edema. No clubbing or cyanosis Neurologically awake, alert, oriented x3 with well-coordinated movements. Patient does have left lateral rectus weakness. Minimal Left eye ptosis noted. Muscle strength 5 out of 5 on all 4 extremities. Skin: No rash or skin lesions. Psychiatric: Coperative. Nonsuicidal Musculoskeletal: No joint swelling or deformity. Normal range of motion. Results CBC & Chem 7: 04/06/22 03:36 04/06/22 03:36 Labs: Abnormal Lab Results - Last 24 Hours (Table) 04/05/22 04/05/22 Range/Units 11:07 14:27 Lymphocytes # 0.7 L (1.0-4.8) k/uL Creatinine 0.44 L (0.52-1.04) mg/dL Thrombosis Risk Factor Assmnt - DVT/VTE Prophylaxis DVT/VTE Prophylaxis: Pharmacologic Prophylaxis ordered - Choose All That Apply Any of the Below Risk Factors Present?: No Other Risk Factors: No Other congenital or acquired thrombophilia - If yes, enter type in comment: No Thrombosis Risk Factor Assessment Level: Very Low Risk Assessment and Plan Assessment: Left sixth nerve palsy and horizontal nystagmus. 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 Nonspecific white matter demyelination changes Recent admission with Castañeda's palsy. Improving History of thyroid nodules DVT prophylaxis Plan: Patient will be continued on telemetry monitoring. MRI of the orbits was ordered. Patient is scheduled to get MRI C-spine also. Neurology was consulted. Continue with neuro checks every 4 hourly. Ophthalmology and neurology is on board. Follow up closely. Time with Patient: Greater than 30
[2022-04-05] MEDS: HEPARIN SODIUM,PORCINE/PF 5,000 UNIT/0.5 ML SYRINGE SQ SCH (23:53)
[2022-04-05] MEDS: ASPIRIN 81 MG PO SCH (23:53)
[2022-04-06] MEDS: ACETAMINOPHEN TAB 325 MG TAB PO PRN (08:12)
[2022-04-06] MEDS: ASPIRIN 81 MG PO SCH (08:12)
[2022-04-06] MEDS: HEPARIN SODIUM,PORCINE/PF 5,000 UNIT/0.5 ML SYRINGE SQ SCH ×2 (08:13→15:17)
[2022-04-06 08:57] LABS: Basophils # (A) 0.04 X 10*3/uL (0.00-0.10); Basophils % (A) 0.5 %; Eosinophils # (A) 0.25 X 10*3/uL (0.04-0.35); Eosinophils % (A) 3.2 %; HCT 36.8 % (37.2-46.3); HGB 12.4 g/dL (12.0-15.0); Immature Grans, Automated 0.3 %; Lymphocytes # (A) 2.03 X 10*3/uL (0.90-5.00); Lymphocytes % (A) 25.7 %; MCHC 33.7 g/dL (32.0-37.0); Mean Platelet Volume 11.3 fL (9.5-12.2); Monocytes # (A) 0.91 X 10*3/uL (0.20-1.00); Monocytes % (A) 11.5 %; NRBC Per 100 WBC 0 /100 WBCS (0.0-0.0); Neutrophils # (A) 4.66 X 10*3/uL (1.80-7.70); Neutrophils % (A) 58.8 %; Platelet Count 287 X 10*3/uL (140-440); RBC 4.28 X 10*6/uL (4.10-5.20); RDW 12.3 % (11.5-14.5); WBC 7.91 X 10*3/uL (4.50-10.00)
[2022-04-06 09:21] LABS: African American GFR (CKD) 142.3 (60.0-200.0); Blood Urea Nitrogen 8.4 mg/dL (9.0-27.0); Calcium 8.5 mg/dL (8.7-10.3); Carbon Dioxide 27.5 mmol/L (20.0-27.5); Chloride 105 mmol/L (96-109); Chol/HDL Ratio 2.97 Ratio; Glucose 107 mg/dL (70-110); Non-African American GFR(CKD) 122.8 (60.0-200.0); Potassium 3.8 mmol/L (3.5-5.5); Sodium 140 mmol/L (135-145); VLDL Calculation 13.42 mg/dL (5.00-40.00)
--- NOTE | 2022-04-06 14:56 | P.CNNES ---
History of Present Illness Consult date: 04/06/22 History of Present Illness: The patient is a 36-year-old female who is seen in neurologic consultation on April 06, 2022, via teleneurology. The patient reports that approximately 3 weeks ago she presented to the emergency department with left facial weakness and was diagnosed with Castañeda's palsy. She feels that it is approximately "85% better". The patient does note that prior to her Castañeda's palsy, she has been dealing with thyroid nodules and goiters. Most recently, the patient has been experiencing horizontal diplopia. She notes that in addition to the double vision, she is having pain in the posterior aspect of her head, behind her left ear. She says this pain radiates into her shoulder and arm. The patient reports upper, neck pain. She denies Lhermitte's. She denies difficulty with hand coordination, swallowing, speaking, walking. She denies recent falls. The patient does report when one of her eyes is closed, the diplopia resolves. She has not noted any loss of visual acuity. She denies tenderness to palpation of her temporal arteries. The patient reports that she came into the emergency department because she was feeling a l ittle bit worse. She reportedly had some mild difficulty with balance. She does already have an appointment scheduled for an MRI of her brain and cervical spine. In addition, she has an appointment to see a neurologist, in early April. Workup in the emergency department included a CT scan of the brain. There is no evidence of acute hemorrhage or infarct. No mass. Past Medical History Past Medical History: Thyroid Disorder History of Any Multi-Drug Resistant Organisms: None Reported Past Surgical History: No Surgical Hx Reported Past Anesthesia/Blood Transfusion Reactions: No Reported Reaction Past Psychological History: No Psychological Hx Reported Smoking Status: Never smoker Past Alcohol Use History: Rare Past Drug Use History: None Reported Medications and Allergies Home Medications Medication Instructions Recorded Confirmed Type No Known Home Medications 03/17/22 04/05/22 History Allergies Allergy/AdvReac Type Severity Reaction Status Date / Time ketorolac [From Toradol] AdvReac Swelling Verified 04/05/22 14:03 Physical Examination - Vital Signs Vital Signs: Vital Signs Temp Pulse Pulse Resp BP BP Pulse Ox 04/06/22 07:45 97.3 F L 76 19 115/75 97 04/06/22 01:23 97.9 F 81 15 100/62 97 04/05/22 20:10 68 04/05/22 19:02 97.8 F 82 17 146/87 99 04/05/22 18:26 97.8 F 92 18 124/69 98 04/05/22 15:00 81 16 139/80 98 Intake and Output 04/05/22 04/06/22 04/06/22 22:59 06:59 14:59 Intake Total 560 Balance 560 Intake: Intake, IV Titration 240 Amount Sodium Chloride 0.9% 1, 240 000 ml @ 20 mls/hr IV . Q24H [facility] Rx#:[id number] Oral 320 Other: # Voids 2 Weight 63.503 kg Gen.: The patient is reclining in the bed. She is well-nourished, well- developed and in no acute distress. HEENT: Head is atraumatic, normocephalic. Fundus not visualized. There is no scleral icterus. Mucous membranes are moist. There is no tenderness to palp ation of the temporal arteries Neck: Supple without carotid bruits Heart: Regular rate and rhythm Lungs: Clear to auscultation Extremities: Without edema Neurological examination Mental status: The patient is awake, alert and oriented 3. She answers all questions appropriately. There is no dysarthria or aphasia. Cranial nerves: Pupils are equal at 4 mm and reactive. Visual vidal are full to confrontation. Extraocular movements reveal right eye nystagmus on right lateral gaze. Left eye is unable to be abducted past midline. Facial sensation is intact. There is mild left ptosis. Smile is symmetric. Hearing is intact bilaterally. Uvula and palate are midline. Shoulder shrug is symmetric. Tongue protrudes midline. Motor: Strength is 5/5 throughout. Coordination: Finger to nose and rapid alternating movements are intact. Sensation: Intact to light touch throughout Deep tendon reflexes: 2+/4+ in the bilateral upper extremities. Bilateral patellar reflexes 3+/4+. Plantar responses are flexor bilaterally. Gait: Not assessed Results - Laboratory Findings CBC and BMP: 04/06/22 03:36 04/06/22 03:36 Abnormal Lab Findings: Abnormal Labs 04/05/22 04/05/22 04/06/22 11:07 14:27 03:36 Hct 36.8 L Lymphocytes # 0.7 L Anion Gap BUN Creatinine 0.44 L Calcium HDL Cholesterol 04/06/22 03:36 Hct Lymphocytes # Anion Gap 7.50 L BUN 8.4 L Creatinine 0.5 L Calcium 8.5 L HDL Cholesterol 60.60 H - Diagnostic Findings Comments: CT brain and MRI brain images have been personally reviewed Assessment and Plan Assessment: 1. Left cranial nerve palsy with right eye nystagmus on right lateral gaze, differential diagnosis: Multiple sclerosis, neurosarcoidosis, lymphoma (doubt). Unlikely giant cell arteritis as there is no temporal artery tenderness and the patient is much too young for this disorder 2. Recent history of left Castañeda's palsy 3. Reported history of goiter and thyroid nodules Plan: 1. Pt is neurologically stable for discharge. Discussed MRI of C-spine scheduled for tomorrow and reason to stay one more night. The patient reports already having an outpatient MRI scheduled for April 18. She prefers to go home and follow up as an outpatient. 2. Follow up with neurologist at scheduled appointment, for further evaluation and workup 3. Follow up with ophthalmology Thank you for allowing us to participate in the care of this patient Time with Patient: Greater than 30 (Spent 50 minutes examining patient, reviewing labs, imaging, documentation and preparing a note)
[2022-04-06] MEDS ORDERED: IBUPROFEN 400 MG TAB PO PRN (15:09)
[2022-04-07] MEDS: HEPARIN SODIUM,PORCINE/PF 5,000 UNIT/0.5 ML SYRINGE SQ SCH ×2 (00:34→07:40)
--- NOTE | 2022-04-07 01:34 | P.PN ---
Subjective Progress Note Date: 04/06/22 patient is a 36-year-old femalewithout significant past medical history presents to ER with complaints of left-sided facial pain, weakness and and unable to close her eye completely. Patient was recently admitted to the hospital for possible left facial palsy. Patient was discharged home with valacyclovir and prednisone. Patient states that she has been having left-sided facial pain and also developed double vision. She was also noted to have left eye discomfort and was noted to be having left-sided neck palsy while in the ER. Patient is also being generalized weakness and presented to ER. Patient does have history of chronic neck pain. Left facial weakness however is improving. No complaints of fever or chills. No cough or sputum production. No chest pain or shortness breath. Patient was seen by ophthalmology in the ER. CT head showed no acute intracranial hemorrhage, mass effect or midline shift is seen. Chest x-ray showed no acute cardiopulmonary process. EKG showed normal sinus rhythm. MRI of the orbits showed consider vertebral artery compression of the middle lobe. Nonspecific white matter demyelination. 04/06/2022 Patient is currently sitting on the side of bed. Awake alert and oriented x3. Left facial pain is better. Still having left rectus muscle weakness. Com plains of headache or dizziness. No fever no chills. Patient was seen by neurology and recommended MRI of C spine. Which is scheduled for tomorrow morning. Patient is agreeable to stay in the hospital to get the MRI done sooner. Level data showed BUN 8.4 and creatinine 0.5 and LDL 106. Patient is on aspirin. Neurology is on board. Current medications reviewed. Objective - Vital Signs Vital signs: Vital Signs Temp 98.3 F 04/06/22 14:00 Pulse 78 04/06/22 14:00 Resp 16 04/06/22 14:00 BP 139/90 04/06/22 14:00 Pulse Ox 96 04/06/22 14:00 FiO2 Intake & Output 04/05/22 04/06/22 04/06/22 18:59 06:59 18:59 Intake Total 560 240 Balance 560 240 Weight 63.503 kg 63.503 kg Intake: Intake, IV Titration 240 Amount Sodium Chloride 0.9% 1, 240 000 ml @ 20 mls/hr IV . Q24H KRISS Rx#:[id number] Oral 320 240 Other: # Voids 2 - Exam PHYSICAL EXAMINATION: Patient is lying in the bed comfortably, no acute distress, awake alert and oriented.. HEENT: Normocephalic. Neck is supple. Pupils reactive. Nostrils clear. Oral cavity is moist. Neck reveals no JVD, carotid bruits, or thyromegaly. CHEST EXAMINATION: Trachea is central. Symmetrical expansion. Lung vidal clear to auscultation and percussion. CARDIAC: Normal S1, S2 with no gallops. No murmurs ABDOMEN: Soft. Bowel sounds normal. No organomegaly. No abdominal bruits. Extremities: reveal no edema. No clubbing or cyanosis Neurologically awake, alert, oriented x3 with well-coordinated movements. Patient does have left lateral rectus weakness. Minimal Left eye ptosis noted. Muscle strength 5 out of 5 on all 4 extremities. Skin: No rash or skin lesions. Psychiatric: Coperative. Nonsuicidal Musculoskeletal: No joint swelling or deformity. Normal range of motion. - Labs CBC & Chem 7: 04/06/22 03:36 04/06/22 03:36 Labs: Abnormal Lab Results - Last 24 Hours (Table) 04/06/22 04/06/22 Range/Units 03:36 03:36 Hct 36.8 L (37.2-46.3) % Anion Gap 7.50 L (10.00-18.00) mmol/L BUN 8.4 L (9.0-27.0) mg/dL Creatinine 0.5 L (0.6-1.5) mg/dL Calcium 8.5 L (8.7-10.3) mg/dL HDL Cholesterol 60.60 H (40.00-60.00) mg/dL Assessment and Plan Assessment: Left sixth nerve palsy and horizontal nystagmus. 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 Nonspecific white matter demyelination changes Recent admission with Castañeda's palsy. Improving History of thyroid nodules DVT prophylaxis Plan: Patient will be continued on telemetry monitoring. MRI of the orbits was done. Patient is scheduled to get MRI C-spine also. Neurology is on board. Continue with neuro checks every 4 hourly. Ophthalmology and neurology is on board. Follow up closely. Time with Patient: Greater than 30
[2022-04-07] MEDS: ASPIRIN 81 MG PO SCH (07:40)
[2022-04-07] MEDS: ACETAMINOPHEN TAB 325 MG TAB PO PRN (07:40)
--- NOTE | 2022-04-07 11:26 | MR ---
EXAMINATION TYPE: MR cervical spine wo/w con DATE OF EXAM: 04/07/2022 COMPARISON: Brain and orbit MRI December 04, 2021 HISTORY: Sixth nerve palsy, off balance TECHNIQUE: Multiplanar, multisequence images of the cervical spine were acquired without contrast and with 6.5 m L intravenous Gadavist gadolinium contrast. Diffusion weighted imaging was performed. C2-C3: No evidence for degenerative disc disease. No disc bulge/herniation or protrusion. No Canal stenosis. Foramina are patent bilaterally. C3-C4: No evidence for degenerative disc disease. No disc bulge/herniation or protrusion. No Canal stenosis. Foramina are patent bilaterally. C4-C5: No evidence for degenerative disc disease. No disc bulge/herniation or protrusion. No Canal stenosis. Foramina are patent bilaterally. C5-C6: No evidence for degenerative disc disease. No disc bulge/herniation or protrusion. No Canal stenosis. Foramina are patent bilaterally. C6-C7: No evidence for degenerative disc disease. No disc bulge/herniation or protrusion. No Canal stenosis. Foramina are patent bilaterally. C7-T1: No evidence for degenerative disc disease. No disc bulge/herniation or protrusion. No Canal stenosis. Foramina are patent bilaterally. Cervical segments are intact. There is spinal curvature present. Shows abnormal increased signal on T2 weighted sequences, focus of low signal on T1 and enhancement following contrast administration, t his is seen to the left of midline, and there is a suggestion of some slight cord expansion. Craniov ertebral junction relationships are within normal limits. There is no spinal stenosis. IMPRESSION: Favor demyelinating disease, correlate for multiple sclerosis. Infection in the proper clinical setti ng, infarction and neoplasm felt less likely. Result related to the consult clinician.
[2022-04-07 15:37] VITALS: BP 125/79; PULSE 88; RESP 16; TEMP 97.9
--- NOTE | 2022-04-08 02:27 | P.PN ---
Subjective Progress Note Date: 04/07/22 patient is a 36-year-old femalewithout significant past medical history presents to ER with complaints of left-sided facial pain, weakness and and unable to close her eye completely. Patient was recently admitted to the hospital for possible left facial palsy. Patient was discharged home with valacyclovir and prednisone. Patient states that she has been having left-sided facial pain and also developed double vision. She was also noted to have left eye discomfort and was noted to be having left-sided neck palsy while in the ER. Patient is also being generalized weakness and presented to ER. Patient does have history of chronic neck pain. Left facial weakness however is improving. No complaints of fever or chills. No cough or sputum production. No chest pain or shortness breath. Patient was seen by ophthalmology in the ER. CT head showed no acute intracranial hemorrhage, mass effect or midline shift is seen. Chest x-ray showed no acute cardiopulmonary process. EKG showed normal sinus rhythm. MRI of the orbits showed consider vertebral artery compression of the middle lobe. Nonspecific white matter demyelination. 04/07/2022 Patient is seen and evaluated in follow-up this morning with neurology along with ophthalmology following. Awaiting MRI of the LS-spine and further eval uation by neurology. Patient is extremely anxious and wanting to leave. Patient has been evaluated by ophthalmology recommending outpatient follow-up. Patient continues to have visual disturbances noted. Patient is afebrile and denies chest pain or shortness of breath. Review of systems: Constitutional: No reports of fatigue, fever, or chills Cardiovascular: No reports of chest pain or palpitations Respiratory: No reports of shortness of breath or cough GI: No reports of nausea, vomiting, or diarrhea : No reports of dysuria or retention Neurovascular: No reports of weakness or numbness All medications have been reviewed PHYSICAL EXAMINATION: Patient is sitting up in the bed comfortably, anxious, awake alert and oriented.. HEENT: Normocephalic. Neck is supple. Pupils reactive. Nostrils clear. Oral cavity is moist. Neck reveals no JVD, carotid bruits, or thyromegaly. CHEST EXAMINATION: Trachea is central. Symmetrical expansion. Lung vidal clear to auscultation and percussion. CARDIAC: S1, S2 muffled ABDOMEN: Soft. Bowel sounds normal. No organomegaly. No abdominal bruits. Extremities: reveal no edema. No clubbing or cyanosis Neurologically awake, alert, oriented x3 with well-coordinated movements. Patient does have left lateral rectus weakness. Minimal Left eye ptosis noted. Muscle strength 5 out of 5 on all 4 extremities. Skin: No rash or skin lesions. Psychiatric: Cooperative. Non-suicidal, anxious Musculoskeletal: No joint swelling or deformity. Normal range of motion. Assessment: Left sixth nerve palsy and horizontal nystagmus. 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 Nonspecific white matter demyelination changes Recent admission with Castañeda's palsy. Improving History of thyroid nodules DVT prophylaxis Plan: Patient will be continued on telemetry monitoring. MRI of the orbits was ordered. Patient is scheduled to get MRI C-spine also. Neurology following with suspicious lesion noted on c spine and recommending LP and starting steroids. Patient is extremely anxious to go home and requesting to leave. AMA discussed and patient is considering leaving. Continue with neuro checks every 4 hourly. Ophthalmology and neurology following. Prognosis is guarded. The impression and plan of care has been dictated by Rosie Craft, Nurse Practitioner as directed. Dr. David MD I have performed a history and examination and MDM of this patient, discussed the same with the dictator, and agree with the dictator's assessment and plan as written ,documented as a scribe. Based on total visit time, I have performed more than 50% of the visit. Objective - Vital Signs Vital signs: Vital Signs Temp 97.9 F 04/07/22 14:00 Pulse 88 04/07/22 14:00 Resp 16 04/07/22 14:00 BP 125/79 04/07/22 14:00 Pulse Ox 100 04/07/22 14:00 FiO2 Intake & Output 04/06/22 04/07/22 04/07/22 18:59 06:59 18:59 Intake Total 240 800 Output Total 300 Balance -60 800 Intake: Oral 240 800 Output: Urine 300 Other: # Voids 3 - Labs CBC & Chem 7: 04/06/22 03:36 04/06/22 03:36
--- NOTE | 2022-04-08 09:03 | CA ---
Transthoracic Echo Report Name: Michelle Wright Age: 36 Gender: F : 1985 Exam Date: 04/07/2022 13:00 Exam Location: [place] Echo Ht (in): 65 Wt (lb): 140 Ordering Physician: Meron Hernandez MD Attending/Referring Phys: Archaeology Professor Nidhi Jones RDCS Procedure CPT: Indications: CVA Cardiac Hx: Technical Quality: Good Contrast 1: Total Dose (mL): Contrast 2: Total Dose (mL): MEASUREMENTS (Male / Female) Normal Values 2D ECHO LV Diastolic Diameter PLAX 4.3 cm 4.2 - 5.9 / 3.9 - 5.3 cm LV Systolic Diameter PLAX 2.6 cm IVS Diastolic Thickness 1.1 cm 0.6 - 1.0 / 0.6 - 0.9 cm LVPW Diastolic Thickness 1.0 cm 0.6 - 1.0 / 0.6 - 0.9 cm LV Relative Wall Thickness 0.5 RV Internal Dim ED PLAX 3.0 cm LA Systolic Diameter LX 3.4 cm 3.0 - 4.0 / 2.7 - 3.8 cm LA Volume 48.4 cm??? 18 - 58 / 22 - 52 cm??? M-MODE Aortic Root Diameter MM 3.5 cm MV E Point Septal Separation 0.3 cm AV Cusp Separation MM 2.7 cm DOPPLER AV Peak Velocity 131.1 cm/s AV Peak Gradient 6.9 mmHg MV Area PHT 3.7 cm??? Mitral E Point Velocity 81.0 cm/s Mitral A Point Velocity 54.1 cm/s Mitral E to A Ratio 1.5 MV Deceleration Time 205.3 ms MV E' Velocity 13.3 cm/s Mitral E to MV E' Ratio 6.1 TR Peak Velocity 189.5 cm/s TR Peak Gradient 14.4 mmHg Right Ventricular Systolic Press 19.4 mmHg FINDINGS Left Ventricle Left ventricular ejection fraction is estimated at 60-65 %. Left ventricular cavity size normal. Left ventricular wall thickness normal. Right Ventricle Normal right ventricular size and function. Right ventricular systolic pressure within normal limits. Right Atrium Normal right atrial size. Left Atrium Normal left atrial size. No patent foramen ovale. Mitral Valve Structurally normal mitral valve. Trace mitral regurgitation. Aortic Valve Trileaflet aortic valve. No aortic valve stenosis or regurgitation. Tricuspid Valve Trace to mild tricuspid regurgitation. Pulmonic Valve Structurally normal pulmonic valve. Pericardium Normal pericardium. No pericardial effusion. Aorta Normal size aortic root and proximal ascending aorta. CONCLUSIONS Left ventricular ejection fraction 60-65% Normal left ventricular wall thickness Trace mitral regurgitation Trace to mild tricuspid regurgitation No pericardial effusion Previewed by: Dr. Fady Galvez DO (Electronically Signed) Final Date: 08 April 2022 09:02
--- NOTE | 2022-04-09 09:57 | P.DS ---
Providers Date of admission: 04/05/22 13:33 Expected date of discharge: 04/07/22 Attending physician: Ines Goldman Consults: 04/05/22 11:01 Consult Physician Urgent Consulting Provider: Nash Banks Consult Reason/Comments: Sixth nerve palsy Do you want consulting provider notified?: Already Contacted 04/05/22 11:12 Consult Physician Urgent Consulting Provider: Pita Pablo Consult Reason/Comments: Left sixth nerve palsy, right eye nystagmus, off balance Do you want consulting provider notified?: Already Contacted Primary care physician: Stated None Hospital Course: Final diagnosis Left sixth nerve palsy and horizontal nystagmus. 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 This is suspicious for demyelinating disease with a lesion noted on the cervical spine MRI Nonspecific white matter demyelination changes Recent admission with Castañeda's palsy. Improving History of thyroid nodules DVT prophylaxis Discharge disposition Patient has decided to leave AGAINST MEDICAL ADVICE. Risks versus benefits were explained and patient signed the AMA paperwork. Patient was alert and oriented 3. Total time taken is greater than 35 minutes. Hospital course This is a 36-year-old female who was recently admitted with left-sided facial pain, weakness and inability to open and close her eyes completely. Patient was recently admitted and discharged for left facial palsy and discharged home on acyclovir and prednisone patient continued having symptoms and came for further evaluation. Patient was also seen in the outpatient setting in the ER by rotary screen printing machine operator recommending close outpatient follow-up. Patient does have some visual disturbances in the left eye and also some neck pain as well. Patient was undergoing complete neurological workup underwent MRI of the cervical spine favoring demyelinating disease correlate for multiple sclerosis as there is a suspicious lesion noted. Neurology recommending LP and initiation of steroids and patient extremely anxious and wanting to go home. Patient strongly encouraged to stay to complete the workup and was alert and oriented 3 verbalized understanding of the risks versus the benefits of leaving and still persisted on leaving today. Patient encouraged to report to the ER call 911 if any changes. Patient verbalized understanding. Currently no reports of chest pain, shortness of breath, or palpitations. Patient is afebrile. No reports of nausea or vomiting and patient is tolerating diet. Patient is leaving AGAINST MEDICAL ADVICE Physical exam: Gen: This is a 36-year-old female awake, alert and oriented 3, well-developed, well-nourished. HEENT: Head is atraumatic, normocephalic. Pupils equal, round. Sclerae is anicteric. NECK: Supple. No JVD. No lymphadenopathy. No thyromegaly. LUNGS: Clear to auscultation. No wheezes or rhonchi. No intercostal retractions. HEART: Regular rate and rhythm. No murmur. ABDOMEN: Soft. Bowel sounds are present. No masses. No tenderness. EXTREMITIES: No pedal edema. No calf tenderness. NEUROLOGICAL: Patient is awake, alert and oriented x3. Cranial nerves 2 through 12 are grossly intact. Cervical neck discomfort with movement with continued left side deficits of the face Please refer to medication reconciliation sheet for a list of medications. The impression and plan of care has been dictated by Rosie Craft, Nurse Practitioner as directed. Dr. David MD I have performed a history and examination and MDM of this patient, discussed the same with the dictator, and agree with the dictator's assessment and plan as written ,documented as a scribe. Based on total visit time, I have performed more than 50% of the visit. Patient Condition at Discharge: Fair Plan - Discharge Summary Discharge Rx Participant: No New Discharge Prescriptions: No Action No Known Home Medications Discharge Medication List No Known Home Medications 03/17/22 [History] Follow up Appointment(s)/Referral(s): None,Stated [Primary Care Provider] - 1-2 days Patient Instructions/Handouts: Radial Nerve Palsy (GEN) Discharge Disposition: HOME SELF-CARE
[2022-04-10 13:29] LABS: Lyme IgG/IgM 0.24 Index
== END 2022-04-07 17:30 | disposition home or self-care (01) ==
LOC: EC 10:28 → 6NMEDSUR 13:33 → 5NMEDONC 15:52 → 4SSUR 17:21
PROVIDERS: ADMIT Internal Medicine; ATTEND Internal Medicine
DX: H49.22 Sixth [abducent] nerve palsy, left eye (principal); H55.00 Unspecified nystagmus; G37.8 Other specified demyelinating diseases of central nervous system; M54.2 Cervicalgia; G89.29 Other chronic pain; R41.82 Altered mental status, unspecified; E04.2 Nontoxic multinodular goiter; I08.1 Rheumatic disorders of both mitral and tricuspid valves; Z88.8 Allergy status to other drugs, medicaments and biological substances; Z79.82 Long term (current) use of aspirin; Z53.29 Procedure and treatment not carried out because of patient's decision for other reasons
CPT/HCPCS: 96372 ×3; 96374; 99285; 36415; 93005; 93306; 80061; 80053; 80048; 85652; 84443; 85025 ×2; 85610; 85730; 86140; 86618; 71046; 70450; 70543; 70553; 72156; G0378 ×3; J2405; A9585 ×2; J1644 ×3

== ENCOUNTER 2022-05-06 07:55 | Day surgery (SDC) | payer OTHER ==
[2022-05-06 08:31] VITALS: RESP 18; TEMP 98.2
--- NOTE | 2022-05-06 09:11 | P.PCN ---
Date of Procedure: 05/06/22 Description of Procedure: Procedure: Lumbar Puncture . Preoperative Diagnoses: rule out M.S Postoperative Diagnosis: rule out M.S Anesthesia: 1% lidocaine normal Condition: stable. Complications: none. Description of the procedure: Patient was consented in the preoperative area we discussed the risks benefits and alternatives to the procedure. The patient was Brought the patient into the procedure room and she was placed in the seated position. No sedation was needed. The intrathecal space was accessed at the L3-L4 level. 1% lidocaine was used to anesthetize the area. Clear fluid was collected in 4 tubes. No opening or closing pressure was ordered so was not done. The samples including blood and CSF was sent to the lab I did discussed with the patient before the procedure there is a chance she may have a spinal headache. She has a headache already related to caffeine withdrawal..
[2022-05-06 09:28] VITALS: BP 146/83; PULSE 84
[2022-05-06 10:14] LABS: Glucose,CSF 51 mg/dL (40-70); Total Protein,CSF 45 mg/dL (12-60)
[2022-05-06 10:23] LABS: ALT 20 U/L (4-34); AST 21 U/L (14-36)
[2022-05-06 10:41] LABS: T4, Free (Free Thyroxine) 1.34 ng/dL (0.78-2.19)
[2022-05-06 11:59] LABS: Appearance,CSF Clear; CSF Tube Number 4; CSF Tube Volume 3.6; Nucleated Cells, CSF 3 u/L (0-5); Red Blood Cell,CSF 91 u/L (0-10)
[2022-05-06 12:00] LABS: Red Blood Cell, CSF Fresh 100 %
[2022-05-06 15:36] LABS: Anti-DNA, DS unit <1.0 IU/mL; Anti-Smith Ab Interp NEGATIVE (NEGATIVE); DNA Double-Stranded NEGATIVE (NEGATIVE)
[2022-05-06 16:59] LABS: Rheumatoid Factor, Qnt <10 IU/mL (0-15)
[2022-05-07 10:56] LABS: Lyme IgG/IgM 0.28 Index
[2022-05-09 11:13] LABS: VDRL, Qualitative CSF Nonreactive (Nonreactive)
== END 2022-05-06 09:43 | disposition home or self-care (01) ==
LOC: ORPAIN 07:55
PROVIDERS: ATTEND Hospitalist
DX: R94.02 Abnormal brain scan (principal); Z88.6 Allergy status to analgesic agent
CPT/HCPCS: 62270; 81025; 82040; 82042; 82784; 82945; 83873; 83916; 84157; 84439; 84443; 84450; 84460; 86038; 86225; 86235; 86431; 86592; 86618; 86780; 87801; 88108; 89050

== ENCOUNTER → 2023-05-07 | Outpatient (CLI) | payer OTHER ==
--- NOTE | 2023-05-08 13:18 | MR ---
EXAMINATION TYPE: MR brain wo/w con DATE OF EXAM: 05/07/2023 COMPARISON: 04/05/2022 HISTORY: MS, increased tremors, cognitive decline, decreased mobility CONTRAST: Performed utilizing 7 mL intravenous Gadavist gadolinium contrast. TECHNIQUE: Multiplanar, multisequence imaging of the brain is performed on a 3.0 Ana magnet. Demye linating disease protocol with additional Sagittal Flair sequence is performed. Study is performed wi thin 24 hours of arrival to the hospital. FINDINGS: T2 White Matter Lesions Present : Yes Approximate Number of Lesions: Multiple scattered Locations Identified : Size of Largest Lesion(s): 1. There is a elongated white matter change in the right centrum semiovale perpendicular to the later al ventricle measuring 1.2 x 0.6 cm. 02, image 19. 2. There is a 0.7 x 0.5 cm subcortical white matter changes left centrum semiovale, series 602 image 22. 3. There is a 0.6 x 0.5 cm subcortical white matter change right frontal lobe. Series 602 image 23 Enhancing Lesion(s) Present: No Change from Prior: Stable Diffusion-weighted imaging is performed. There is a focus of radiotracer accumulation within the lef t centrum semiovale parietal occipital region. Example image 303 image 176. Uptake is within the righ t centrum semiovale periventricular region, series 303 image 160. There are hyperintensities present within the periventricular white matter and centrum semiovale bila terally corresponding to the diffusion weighted imaging. Some subtle subcortical white matter changes in the medial left occipital lobe. Ventricles and sulci are appropriate for the patient age. There are no abnormal extra-axial fluid collections. The ventricular system and cisternal spaces are normal in size and appearance. The brain volume is age appropriate. The craniocervical junction alcides ears within normal limits. The dural venous sinuses appear patent. No abnormal enhancement is present on post contrast images. . The visualized sinuses are clear. Visu alized orbits are unremarkable. IMPRESSION: 1. There is some hyperintensity within the white matter discussed above. 2. These have increased uptake on diffusion suggesting acute plaques. Findings can be compatible with multiple sclerosis.
== END | disposition home or self-care (01) ==
LOC: RADMRIMAIN 12:32
PROVIDERS: ATTEND Psychiatry & Neurology Neurology
DX: G35 Multiple sclerosis (principal); G93.89 Other specified disorders of brain; R41.89 Other symptoms and signs involving cognitive functions and awareness; R25.1 Tremor, unspecified
CPT/HCPCS: 70553; A9585

== ENCOUNTER → 2023-05-18 | Outpatient (CLI) | payer OTHER ==
--- NOTE | 2023-05-19 20:23 | MR ---
EXAMINATION TYPE: MR cspine/tspine wo/w con DATE OF EXAM: 05/18/2023 9:30 PM CLINICAL INDICATION:Female, 38 years old with history of G35 MULTIPLE SCLEROSIS; PHH, Multiple Sclero sis, left leg weakness, and left eye vision issues COMPARISON: MRI spine 04/07/2022. TECHNIQUE: Multi planar, multi sequence imaging was performed utilizing: T1-weighted, T2-weighted, a nd turbo inversion recovery imaging of the cervical and thoracic spine. MR contrast: IV Contrast: 7 cc Gadavist, None. FINDINGS: CERVICAL: Alignment: The cervical vertebral bodies have preserved heights. Alignment is within normal limits gi suzie patient positioning. Bones: Bone signal is within normal limits. No abnormal bone marrow edema on inversion recovery seque nces. Cord: Decrease in white matter changes within the spinal cord seen on prior the level of C6 5 and C6 no new areas are visualized. No abnormal postcontrast enhancement. Discs: Intervertebral disc signal is maintained. C2-C3: No significant disc pathology. The spinal canal is patent. No neural foraminal stenosis. C3-C4: No significant disc pathology. The spinal canal is patent. No neural foraminal stenosis. C4-C5: No significant disc pathology. The spinal canal is patent. No neural foraminal stenosis. C5-C6: No significant disc pathology. The spinal canal is patent. No neural foraminal stenosis. C6-C7: No significant disc pathology. The spinal canal is patent. No neural foraminal stenosis. C7-T1: No significant disc pathology. The spinal canal is patent. No neural foraminal stenosis. THORACIC: T7-T8 central disc protrusion which impresses upon the spinal cord. No evidence additional significant spinal canal or neural foraminal stenosis. Spinal cord is within normal limits. No abnorm al postcontrast enhancement within the spinal cord. Other: There is a right thyroid cyst which are high T2 signal measuring up to 18 mm. IMPRESSION: 1. Resolution of prior white matter changes within the cervical spinal cord seen on prior. No new ar eas of demyelination or evidence of active demyelination within the cervical spine or thoracic spine. . 2. T7-T8 central disc protrusion which impresses upon the spinal cord. Spinal cord signal at this le douglas is maintained. 3. Mild degeneration changes with out significant spinal canal or neural foraminal stenosis througho ut the cervical and thoracic spine. 4. No abnormal postcontrast enhancement.
== END | disposition home or self-care (01) ==
LOC: RADMRIMAIN 19:21
PROVIDERS: ATTEND Psychiatry & Neurology Neurology
DX: G35 Multiple sclerosis (principal); M51.24 Other intervertebral disc displacement, thoracic region; M47.812 Spondylosis without myelopathy or radiculopathy, cervical region; M47.814 Spondylosis without myelopathy or radiculopathy, thoracic region
CPT/HCPCS: 72156; 72157; A9585

== ENCOUNTER → 2024-01-06 | Outpatient (CLI) | payer OTHER ==
--- NOTE | 2024-01-06 14:11 | MM ---
Reason for Exam: Clinical finding. Indicated Problems: Pain of the left side (Global) for 3 Month(s) : lt around nipple. Patient History: Menarche at age 11. First Full-Term at age 18. Last menstrual period: 12/15/2023 Risk Values: Ashley 5 year model risk: 0.5%. NCI Lifetime model risk: 9.0%. Tissue Density: The breasts are extremely dense, which lowers the sensitivity of mammography. Findings: Analyzed By CAD. Pattern is somewhat asymmetric with greater parenchymal tissue in the medial left breast compared to the right. Suspicious spiculated or lobular mass however is not evident. Nodule within the posterior left craniocaudal view of the chest wall. Right breast:No suspicious groups of microcalcifications, spiculated or lobular masses, architectural distortion or other secondary signs of malignancy are mammographically apparent. Overall Assessment: Incomplete: need additional imaging evaluation, BI-RAD 0 Management: Diagnostic Breast Ultrasound of the left breast. A negative mammogram report should not preclude additional follow up of suspicious palpable abnormalities. Patient should continue monthly self breast exam. A clinical breast exam by your physician is recommended on an annual basis and results should be correlated with mammographic findings. Note on Ashley scores and lifetime risk: 1. A Ashley score greater than 3% is considered moderate risk. If this is the case, consider specialist referral to assess eligibility for a risk reducing agent. 2. If overall lifetime risk for the development of breast cancer is 20% or higher, the patient may qualify for future screening with alternating mammogram and breast MRI. Electronically signed and approved by: Jose Laird D.O. Radiologis
--- NOTE | 2024-01-06 14:54 | USB ---
Reason for Exam: Clinical finding. Indicated Problems: Pain of the left side (Global) for 3 Month(s) : nipple itchyness, pain and fullness to left breast . Patient History: Menarche at age 11. First Full-Term at age 18. Risk Values: Ashley 5 year model risk: 0.5%. NCI Lifetime model risk: 9.0%. Technique: Method: Whole Breast Handheld. Findings: The whole breast of the left breast, the axilla of the left breast and the retroareolar of the left breast were scanned. No solid or cystic masses are identified.. No abnormality to account for palpable region left breast. Overall Assessment: Negative, BI-RAD 1 Management: Screening Mammogram of both breasts in 1 year. A clinical breast exam by your physician is recommended on an annual basis and results should be correlated with mammographic findings. This exam should not preclude additional follow-up of suspicious palpable abnormalities. Results were given to the patient verbally at the time of exam. Electronically signed and approved by: Jose Laird D.O. Radiologis
== END | disposition home or self-care (01) ==
LOC: RADMAMWWP 13:19
PROVIDERS: ATTEND Family Medicine
DX: R92.343 Mammographic extreme density, bilateral breasts (principal); N63.20 Unspecified lump in the left breast, unspecified quadrant; N64.4 Mastodynia; L29.8 Other pruritus
CPT/HCPCS: 77066; 76641; G0279; 77062